=== PATIENT | male | born 1955 | race Caucasian/White ===

== ENCOUNTER → 2016-10-24 | Outpatient (CLI) | payer OTHER | LOC: FIMAGING 13:05 | PROVIDERS: ATTEND Neurological Surgery | DX: M48.02 Spinal stenosis, cervical region (principal); M47.12 Other spondylosis with myelopathy, cervical region ==

== ENCOUNTER 2016-11-06 11:06 | Observation (INO) | payer OTHER ==
[~2016-11-06 11:06] MED LIST: BACITRACIN 50,000 UNITS/10 ML SYR IRR ONE; CHLORHEXIDINE GLUC HIBICLENS 118 ML BTL TP ONE; SURGIFLO MATRIX KIT WITH THROMBIN TP ONE; THROMBIN (BOVINE) 20,000 UNIT VIAL TP ONE; ceFAZolin 2 GM/DEXTROSE 100 ML IV ONE
[2016-11-06] MEDS ORDERED: CEFAZOLIN 2 GM/DEXTROSE/100 ML BAG IV ONE (12:50)
[2016-11-06] MEDS ORDERED: LR 1,000 ML IV ONE (13:08)
[2016-11-06] MEDS ORDERED: SCOPOLAMINE HYDROBROMIDE 1.5 MG PATCH TD ONE (13:10)
[2016-11-06] MEDS ORDERED: MIDAZOLAM 2 MG/2 ML VIAL ONE (13:11)
[2016-11-06 13:12] LABS: ANION GAP 8 mEq/L (8-16); CALCIUM 9.4 mg/dL (8.5-10.4); CARBON DIOXIDE 25 mEq/l (22-31); CHLORIDE 100 mEq/L (97-110); CREATININE 0.5 mg/dL (0.7-1.3); GLOMERULAR FILTRATION RATE > 60; GLUCOSE 90 mg/dL (70-100); POTASSIUM 4.6 mEq/L (3.5-5.2); SODIUM 133 mEq/L (134-144)
[2016-11-06] MEDS ORDERED: PROPOFOL 200 MG/20 ML VIAL ONE (13:15)
[2016-11-06] MEDS ORDERED: REMIFENTANIL HCL 1 MG VIAL ONE ×2 (13:15→15:22)
[2016-11-06] MEDS ORDERED: fentaNYL 100 MCG/2 ML INJ ONE ×2 (13:15→16:36)
[2016-11-06] MEDS ORDERED: PROPOFOL/EMULSION 500 MG/50 ML BOTTLE IV ONE ×2 (13:15→15:23)
[2016-11-06] MEDS ORDERED: DEXAMETHASONE 4 MG/ML VIAL ONE ×2 (13:58)
[2016-11-06] MEDS ORDERED: ONDANSETRON 4 MG/2 ML VIAL ONE (13:58)
[2016-11-06] MEDS ORDERED: Eletriptan Hbr [Relpax] 20 MG PO PRN (14:05)
[2016-11-06] MEDS ORDERED: LACTULOSE 20 GM/30 ML UDCUP PO PRN (14:06)
[2016-11-06] MEDS ORDERED: ONDANSETRON 4 MG/2 ML VIAL IVP PRN (14:06)
[2016-11-06] MEDS ORDERED: BISACODYL 10 MG SUPP PR PRN (14:06)
[2016-11-06] MEDS ORDERED: ACETAMINOPHEN 325 MG TAB PO PRN (14:06)
[2016-11-06] MEDS ORDERED: ONDANSETRON DISINTEGRATING 4 MG TAB PO PRN (14:06)
[2016-11-06] MEDS ORDERED: diphenhydrAMINE 25 MG CAP PO PRN ×2 (14:06)
[2016-11-06] MEDS ORDERED: POLYETHYLENE GLYCOL 3350 17 GM PKT PO PRN (14:06)
[2016-11-06] MEDS ORDERED: DIAZEPAM 10 MG/2 ML SYR IVP PRN (14:06)
[2016-11-06] MEDS ORDERED: MAGNESIUM HYDROXIDE 30 ML UDCUP PO PRN (14:06)
[2016-11-06] MEDS ORDERED: NS W/ 20 KCl/L 1,000 ML IV SCH (14:15)
[2016-11-06] MEDS ORDERED: HYDROmorphONE/DILAUDID 2 MG/ML INJ ONE (16:08)
--- NOTE | 2016-11-06 16:38 | NEUSURGPN ---
Neurosurgery Physical Exam - Vitals, I&O, Labs I and O 11/05/16 11/06/16 11/07/16 05:59 05:59 05:59 Weight 99.79 kg Laboratory Results 11/06/16 12:35
--- NOTE | 2016-11-06 16:42 | POSTOPPROG ---
Post Op Note Date of Operation: 11/06/16 Surgeon: James Brantley Director Dermatology: FLAQUITA Delcid PAC Anesthesia: GET(General Endotracheal) Pre-op Diagnosis: Cervical Stenosis Post-op Diagnosis: Cervical Stenosis Indication: Cervical stenosis Procedure: C3/4, C4/5 ACDF Inf/Abcess present in the surg proc area at time of surgery?: No EBL: Minimal Drains: Kevon RAMOS Addendum - Addendum .: S:Posterior neck pain O: NAD A7Ox3 MAEx4 5/5 and equal in BUE and BLE Neck soft supple A/p 61y/o male s/p ACDF C3/4 and C4/5 -Optimize pain management -PT/OT -KELLY drain x1 -Post op xrays pending -Advance diet as tolerated -Please notify NS with any change in neuro/motor exam
[2016-11-06] MEDS ORDERED: HYDROmorphONE/DILAUDID 1 MG/ML SYR ONE (17:00)
[2016-11-06] MEDS ORDERED: DIAZEPAM 10 MG/2 ML SYR ONE (17:00)
--- NOTE | 2016-11-06 18:08 | GOP ---
[f rep st] OPERATIVE REPORT DATE OF OPERATION: 11/06/2016 SURGEON: James Brantley MD HEALTH WORKERS: Blanche Delcid PA-C. ANESTHESIA: General. PREOPERATIVE DIAGNOSIS: 1. Severe spinal stenosis C3-C4 and moderate central stenosis C4-C5 with myelopathy (please note, t his was dictated as C2-C3 and C3-C4 based on my imaging read; however, the patient appears to have a fused C2-C3 segment; therefore, the numeration between radiology reports and mine are different). 2. Treatment refractory to nonoperative intervention. 3. Cervicalgia. POSTOPERATIVE DIAGNOSIS: 1. Anterior arthrodesis with approach to C3, C4, and C5 (or C2, C3, C4). 2. C3-C4 diskectomy with bilateral foraminotomies, osteophytectomies, and interbody fusion using a 7 x 14 x 11 mm titanium coated PEEK cage with morselized autograft and allograft. 3. C4-C5 diskectomy with bilateral foraminotomies, osteophytectomy, and interbody fusion using a 7 x 14 x 11 mm titanium coated PEEK cage with morselized autograft and allograft. 4. Anterior cervical fusion C3, C4, C5 with [employer] [place] translational plate. 5. Use of intraoperative fluoroscopy, less than 1 hour physician time. 6. Use of neuromonitoring. 7. Use of operating microscope. PROCEDURE PERFORMED: 1. Anterior arthrodesis with approach to C3, C4, and C5 (or C2, C3, C4). 2. C3-C4 diskectomy with bilateral foraminotomies, osteophytectomies, and interbody fusion using a 7 x 14 x 11 mm titanium coated PEEK cage with morselized autograft and allograft. 3. C4-C5 diskectomy with bilateral foraminotomies, osteophytectomy, and interbody fusion using a 7 x 14 x 11 mm titanium coated PEEK cage with morselized autograft and allograft. 4. Anterior cervical fusion C3, C4, C5 with a 40 mm [employer] [place] translational plate. 5. Use of intraoperative fluoroscopy, less than 1 hour physician time. 6. Use of intraoperative neuromonitoring. 7. Use of operating microscope. FINDINGS: SPECIMENS: None. ESTIMATED BLOOD LOSS: 150 mL. 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 Imaging demonstrates severe spinal stenosis at the C3-C4 and moderate stenosis at C4-C5 l evels. This was labeled as C2-C3 and C3-C4 per my numeration; however, the patient appears to have a fused C2-C3 segment which I did not appreciate and a fused spinous process as well; therefore, the consents and the preoperative paperwork are slightly off by 1 level compared to the patient's radio logy films. Our levels were confirmed to be consistent with the imaging studies for surgical purpos es. DESCRIPTION OF PROCEDURE: Patient brought to the operating theater and underwent general endotrache al anesthesia without complications. Venodynes, DAMIAN hose, and the appropriate lines placed by Deandre magaña. His head was maintained supine on the operating table in slight extension. Using lateral fl uoroscopy and a spinal needle, we then picked our entry point to the C3, C4, C5 levels. This was ma rked in a transverse incision on the right side of the neck. This area was then prepped and draped in usual sterile surgical fashion. A time-out was completed per protocol, and the patient received antibiotics within [address] Doron Haney will then dictate in a separate operative report the anterior cervical approach to t he C3, C4, C5 levels. Once we landed on the anterior cervical disk spaces and vertebral body, we confirmed our level using lateral fluoroscopy. We elevated the longus colli muscles off the anterior vertebral bodies of C3, C4, C5. Deep retractors placed to maintain exposure. The microscope was brought into field to ass ist with microscopic dissection and to maintain illumination and magnification. At this point, we p laced a Doyline pin in the vertebral body of C3, C4, placed C3-C4 under mild distraction. We complet ed a C3-C4 diskectomy with bilateral foraminotomies and osteophytectomies. We prepared the cartilag inous endplates and measured interbody space. We then placed a 7 x 14 x 11 mm titanium coated PEEK cage with morselized autograft and allograft into the C3-C4 disk space. We removed the Doyline pin f rom C3, placed in C5, and placed C4-C5 in mild distraction. We then completed a C4-C5 diskectomy wi th bilateral foraminotomies and osteophytectomies. We prepared the cartilaginous endplates and enoc ured interbody space. We then placed a 7 x 14 x 11 mm titanium coated PEEK cage with morselized aut ograft and allograft into the C4-C5 disk space. We removed the Doyline pins and drilled down the ant erior osteophytes on C3, C4, and C5. We then secured a 40 mm [employer]tronic [place] Blue translational plate in the vertebral bodies of C3, C4, and C5. AP and lateral x-rays demonstrated good placement of th e hardware. We then irrigated the wound copiously with bacitracin irrigation and obtained hemostasi s with the bipolar. The wound was irrigated copiously with bacitracin irrigation and closed in mult iple layers using Vicryl sutures for the deep layers and Dermabond for the skin. The patient's woun ds were dressed sterilely. He was then awakened, extubated, and taken to the recovery room in stabl e condition. There were no complications and no noted changes on neuromonitoring throughout the pro cedure. COMPLICATIONS: None. CO-SURGEON: Doron Haney MD of ENT. /[id number]/MODL
[2016-11-06] MEDS: ACETAMINOPHEN/CODEINE 300/30MG TAB PO PRN (18:24)
[2016-11-06] MEDS: DEXAMETHASONE 4 MG TAB PO SCH ×2 (18:25→22:51)
[2016-11-06] MEDS: DOCUSATE SODIUM 100 MG CAP PO SCH (18:25)
[2016-11-06] MEDS: FAMOTIDINE 20 MG/NACL 50 ML IV SCH (20:26)
[2016-11-06] MEDS: carBAMazepine 200 MG TAB PO SCH (20:27)
[2016-11-06] MEDS: CYCLOBENZAPRINE 10 MG TAB PO SCH (20:27)
[2016-11-06] MEDS: SENNOSIDES/DOCUSATE SODIUM TAB PO SCH (20:27)
[2016-11-06] MEDS: QUEtiapine FUMARATE 100 MG TAB PO SCH (20:28)
[2016-11-06] MEDS ORDERED: hydrALAZINE 10 MG TAB PO PRN (20:45)
[2016-11-07] MEDS: ACETAMINOPHEN/CODEINE 300/30MG TAB PO PRN ×4 (00:37→18:30)
[2016-11-07] MEDS: CYCLOBENZAPRINE 10 MG TAB PO SCH ×2 (09:01→20:11)
[2016-11-07] MEDS: SENNOSIDES/DOCUSATE SODIUM TAB PO SCH ×2 (09:01→20:10)
[2016-11-07] MEDS: carBAMazepine 200 MG TAB PO SCH ×2 (09:01→20:11)
[2016-11-07] MEDS: FAMOTIDINE 20 MG/NACL 50 ML IV SCH (09:02)
[2016-11-07] MEDS: SODIUM CL NASAL 45 ML BTL EACHNARE SCH (10:24)
[2016-11-07] MEDS: QUEtiapine FUMARATE 50 MG TAB PO SCH (12:17)
--- NOTE | 2016-11-07 12:31 | NEUSURGPN ---
Assessment/Plan: S:Posterior neck pain still persists. Has improved left arm pain , and now has some left hand numbness. Eating well. Tolerating Tylenol 3 with codeine as pain medication currently without nausea. O: NAD A7Ox3 MAEx4 5/5 and equal in BUE and BLE Neck soft supple A/p 61y/o male s/p ACDF C3/4 and C4/5 POD#1 -Optimize pain management- continue with Tylenol 3 and Flexeril -PT/OT -KELLY drain- Pull today -Post op xrays pending today -Advance diet as tolerated- soft diet at first -Dispo- Can go home later today if pain under control and swallowing still going well. If not today, tomorrow. -Please notify NS with any change in neuro/motor exam - Physician Discussed Patient with : [facility] Physical Exam - Vitals, I&O, Labs I and O 11/06/16 11/07/16 11/08/16 05:59 05:59 05:59 Intake Total 2880 Output Total 1780 Balance 1100 Weight 99.79 kg Intake: Oral (ml) 930 IV Intake (ml) 1100 IV Infused (ml) 850 Famotidine 20 mg/NaCl 50 50 ml @ 200 mls/hr IV Q12HRS [facility] Rx#:[id number] Lr 1,000 ml @ Per 400 Protocol IV ONCE ONE Rx#: [id number] ceFAZolin 1 GM/DEXTROSE 400 50 ml @ 200 mls/hr IV Q8HRS [facility] Rx#:[id number] Output: Urine (ml) 1600 Toilet 400 Urinal 1200 Estimated Blood Loss (ml) 150 Wound Drainage (ml) 30 Anterior Neck Kevon 30 Mackenzie Other: Intake Quantity No Sufficient Number of Voids Toilet 1 Urinal 1 Vital Signs Temp Pulse Resp BP Pulse Ox 36.6 C 76 14 129/69 H 95 11/07/16 11:50 11/07/16 11:50 11/07/16 11:50 11/07/16 11:50 11/07/16 11:50 Laboratory Results 11/06/16 12:35 ICD10 Worksheet Patient Problems: Problems Problem Status Onset Cervical stenosis of spinal canal Acute - ICD10 Problem Qualifiers (1) Cervical stenosis of spinal canal
[2016-11-07] MEDS: DOCUSATE SODIUM 100 MG CAP PO SCH (16:58)
[2016-11-07] MEDS: QUEtiapine FUMARATE 100 MG TAB PO SCH (20:11)
[2016-11-07] MEDS: FAMOTIDINE 20 MG TAB PO SCH (20:12)
[2016-11-08] MEDS: ACETAMINOPHEN/CODEINE 300/30MG TAB PO PRN ×3 (00:03→12:10)
[2016-11-08 07:57] VITALS: BP 129/73; PULSE 77; RESP 16; TEMP 98.8; O2SAT 90
[2016-11-08] MEDS: carBAMazepine 200 MG TAB PO SCH (09:26)
[2016-11-08] MEDS: CYCLOBENZAPRINE 10 MG TAB PO SCH (09:26)
[2016-11-08] MEDS: SENNOSIDES/DOCUSATE SODIUM TAB PO SCH (09:27)
[2016-11-08] MEDS: FAMOTIDINE 20 MG TAB PO SCH (09:27)
[2016-11-08] MEDS: SODIUM CL NASAL 45 ML BTL EACHNARE SCH (09:47)
--- NOTE | 2016-11-08 11:03 | NEUSURGPN ---
Assessment/Plan: S:Posterior neck pain still persists but tolerable. Is still unsure he can go home today. Up walking well with PT. Eating, drinking, voiding well. O: NAD A7Ox3 MAEx4 5/5 and equal in BUE and BLE Neck soft supple A/p 61y/o male s/p ACDF C3/4 and C4/5 POD#2 -Optimize pain management- continue with Tylenol 3 and Flexeril -PT/OT -KELLY drain pulled 6/3 -Post op xrays show good hardware alignment -Advance diet as tolerated- soft diet at first -Dispo- Can go home later today if pain under control, passes therapies. Will write for [facility]. -Please notify NS with any change in neuro/motor exam - Physician Discussed Patient with : [facility] Neurosurgery Physical Exam - Vitals, I&O, Labs I and O 11/07/16 11/08/16 11/09/16 05:59 05:59 05:59 Intake Total 2880 Output Total 1780 1400 20 Balance 1100 -1400 -20 Intake: Oral (ml) 930 IV Intake (ml) 1100 IV Infused (ml) 850 Famotidine 20 mg/NaCl 50 50 ml @ 200 mls/hr IV Q12HRS [facility] Rx#:[id number] Lr 1,000 ml @ Per 400 Protocol IV ONCE ONE Rx#: [id number] ceFAZolin 1 GM/DEXTROSE 400 50 ml @ 200 mls/hr IV Q8HRS [facility] Rx#:[id number] Output: Urine (ml) 1600 1400 20 Toilet 400 Urinal 1200 1400 20 Estimated Blood Loss (ml) 150 Wound Drainage (ml) 30 Anterior Neck Kevon 30 Mackenzie Other: Intake Quantity No Yes Sufficient Number of Voids Toilet 1 Urinal 1 4 1 Vital Signs Temp Pulse Resp BP Pulse Ox 37.1 C 77 16 129/73 H 90 L 11/08/16 07:57 11/08/16 07:57 11/08/16 07:57 11/08/16 09:27 11/08/16 07:57 Laboratory Results 11/06/16 12:35 ICD10 Worksheet Patient Problems: Problems Problem Status Onset Cervical stenosis of spinal canal Acute - ICD10 Problem Qualifiers (1) Cervical stenosis of spinal canal
[2016-11-08] MEDS: QUEtiapine FUMARATE 50 MG TAB PO SCH (13:10)
--- NOTE | 2016-11-08 15:08 | PDIAF ---
- Diagnosis Code Status: Full Code - Medication Management Discharge Medications: Medications to Continue on Transfer Docusate Sodium [Colace 100 MG (*)] 200 mg PO DAILY@18 11/03/16 [Last Taken 06/23] Eletriptan HBr [Relpax] 20 mg PO DAILY PRN MDD 2 PER DAY 11/03/16 [Last Taken 1 Month Ago] QUEtiapine FUMARATE [Seroquel 50 mg (*)] 50 mg PO DAILY@12 11/03/16 [Last Taken 11/05/16] QUEtiapine FUMARATE [Seroquel 50 mg (*)] 100 mg PO HS 11/03/16 [Last Taken 11/05] Sodium Chloride [Saline Nasal Mist] 1 spray NS DAILY 11/03/16 [Last Taken ] amLODIPine BESYLATE [Norvasc 2.5 mg (*)] 2.5 mg PO DAILY 11/03/16 [Last Taken ] carBAMazepine [Tegretol] 400 mg PO BID 11/03/16 [Last Taken 11/06/16] Acetaminophen/Codeine 300/30Mg [Tylenol #3 (*)] 1 tab PO Q6HRS PRN #45 tab 11/08 [Last Taken Unknown] Cyclobenzaprine [Flexeril 10 MG (*)] 10 mg PO BID #60 tab 11/08/16 [Last Taken Unknown] Discharge Medications: Refer to the Discharge Home Medication list for PRN reason. - Orders Services needed: Home Care, Registered Nurse, Physical Therapy, Occupational Therapy Home Care Face to Face: I certify that this patient was under my care and that I had the required lumk-co-lsdn encounter meeting the encounter requirements on the discharge day. My findings support the fact that the patient is homebound as defined in CMS Chapter 7 Medicare Benefits Manual 30.1.1, The condition of the patient is such that there exists a normal inability to leave home and consequently, leaving home would require a considerable and taxing effort. Diet Recommendation: no restrictions on diet Diet Texture: Regular Texture Diet, Thin Liquids, Meds Whole in Puree, Meds Crushed in Puree Wound Care Instructions: may take off bandage and leave off, may shower and get incision wet, no scrubbing incision, pat dry with towel Activity/Weight Bearing Restrictions: no lifting more than 5-10 pounds. wear your collar at all times. may shower in tong collar - Follow Up Care Current Providers and Referrals: Ruddy Melgar MD [Primary Care Provider] - James Brantley MD [Medical Doctor] - follow up in 2 weeks
== END 2016-11-08 16:31 | disposition home or self-care (01) ==
LOC: F3E 11:06 → INTOOBSV 11:06 → F3N 17:48
PROVIDERS: ADMIT Neurological Surgery; ATTEND Neurological Surgery
PROC: 0RG20A0 Fusion of 2 or more Cervical Vertebral Joints with Interbody Fusion Device, Anterior Approach, Anterior Column, Open Approach (ICD-10-PCS; principal; 2016-11-06 13:00)
PROC: 8E0WXBZ Computer Assisted Procedure of Trunk Region (ICD-10-PCS; principal; 2016-11-06 13:00)
DX: M47.12 Other spondylosis with myelopathy, cervical region (principal); I10 Essential (primary) hypertension; E78.00 Pure hypercholesterolemia, unspecified; F31.9 Bipolar disorder, unspecified; Z87.820 Personal history of traumatic brain injury
CPT/HCPCS: 22551; 22552; 72040; 76001; 92610; 97116; 97162; 97165; 97535; G8978; G8979; G8987; G8988; G8996; G8997; C1713; J0690; J1100; J1170; J2250; J2405; J2704; J3010

== ENCOUNTER → 2016-12-23 | Outpatient (CLI) | payer OTHER | LOC: FIMAGING 10:04 | PROVIDERS: ATTEND Physician Assistant Surgical | DX: Z48.89 Encounter for other specified surgical aftercare (principal); Z98.1 Arthrodesis status ==

== ENCOUNTER → 2017-02-05 | Outpatient (CLI) | payer OTHER | LOC: FLAB 09:31 | PROVIDERS: ATTEND Neurological Surgery | DX: Z09 Encounter for follow-up examination after completed treatment for conditions other than malignant neoplasm (principal); Z98.1 Arthrodesis status ==

== ENCOUNTER → 2017-05-14 | Outpatient (CLI) | payer OTHER | LOC: FIMAGING 11:38 | PROVIDERS: ATTEND Neurological Surgery | DX: Z09 Encounter for follow-up examination after completed treatment for conditions other than malignant neoplasm (principal); Z98.1 Arthrodesis status ==

== ENCOUNTER → 2017-11-18 | Outpatient (CLI) | payer OTHER | LOC: FLAB 11-12 12:17 → FIMAGING 17:01 | PROVIDERS: ATTEND Physician Assistant | DX: Z98.1 Arthrodesis status (principal) ==